=== PATIENT | female | born 1975 | race Caucasian/White ===

== ENCOUNTER 2022-07-30 22:29 | Emergency (ER) | payer OTHER ==
[~2022-07-30] VITALS: Ht 170.2 cm; Wt 92.5 kg
[2022-07-30 22:47] VITALS: BP 192/97
[2022-07-30 23:05] VITALS: BP 192/97
--- NOTE | 2022-07-31 00:45 | NUR ---
PT TAKEN TO BED 6
--- NOTE | 2022-07-31 00:46 | NUR ---
Dr. Caldera examining patient.
[2022-07-31] MEDS ORDERED: NAPR-54 PO (00:53)
[2022-07-31] MEDS ORDERED: ACET-8905 PO (00:53)
[2022-07-31] MEDS ORDERED: AMOX1TAB8 PO (00:53)
[2022-07-31] MEDS ORDERED: HYDROcodone/APAP 5/325 MG 1 TAB TAB PO ONE (01:25)
--- NOTE | 2022-07-31 01:37 | NUR ---
Chart checked and completed.
--- NOTE | 2022-07-31 01:37 | NUR ---
Patient discharged with v/s stable. Written and verbal after care instructions given and explained. Patient verbalized understanding. Ambulatory with steady gait. All questions addressed prior to discharge. Advised to follow up with PMD.
== END 2022-07-31 01:37 | disposition home or self-care (01) ==
LOC: MED 22:29
DX: K04.7 Periapical abscess without sinus (principal)
CPT/HCPCS: 99283

== ENCOUNTER 2022-08-28 11:15 | Emergency (ER) | payer OTHER ==
[~2022-08-28] VITALS: Ht 170.2 cm; Wt 95.3 kg
[~2022-08-28 11:15] MED LIST: ACET-8905 PO; AMOX1TAB8 PO; NAPR-54 PO
[2022-08-28 11:43] VITALS: BP 179/86
[2022-08-28] MEDS ORDERED: CLINDAMYCIN 900MG/D5W PM 50 ML IV ONE (14:35)
[2022-08-28] MEDS ORDERED: IBUPROFEN 600 MG TAB PO ONE (16:15)
--- NOTE | 2022-08-28 17:00 | NUR ---
CALLED PT IN LOBBY, NO ANSWER
--- NOTE | 2022-08-28 18:02 | NUR ---
NO ANSWER X 2
[2022-08-28] MEDS ORDERED: LEVO750T75 PO (19:53)
== END 2022-08-28 17:00 | disposition left against medical advice (07) ==
LOC: MED 11:15
DX: S92.512B Displaced fracture of proximal phalanx of left lesser toe(s), initial encounter for open fracture (principal); Z79.1 Long term (current) use of non-steroidal anti-inflammatories (NSAID); Z79.891 Long term (current) use of opiate analgesic; Z79.2 Long term (current) use of antibiotics; Z88.1 Allergy status to other antibiotic agents; W20.8XXA Other cause of strike by thrown, projected or falling object, initial encounter; Y93.89 Activity, other specified; Y92.89 Other specified places as the place of occurrence of the external cause; Y99.8 Other external cause status
CPT/HCPCS: 73630; 99283

== ENCOUNTER 2022-10-14 19:00 | Emergency (ER) | payer OTHER ==
[~2022-10-14] VITALS: Ht 167.6 cm; Wt 90.7 kg
[~2022-10-14 19:00] MED LIST changes: +LEVO750T75 PO
[2022-10-14 19:11] VITALS: BP 162/96
[2022-10-14 19:31] VITALS: BP 162/96
--- NOTE | 2022-10-14 19:31 | NUR ---
Patient discharged with v/s stable. Written and verbal after care instructions given and explained. Accompanied by Matthew VILLAGOMEZ for booking. All questions addressed prior to discharge. Advised to follow up with PMD.
--- NOTE | 2022-10-14 19:31 | NUR ---
Pt seen and evaluated by ERINN
== END 2022-10-14 19:31 ==
LOC: MED 19:00
DX: R45.1 Restlessness and agitation (principal); Z79.899 Other long term (current) drug therapy
CPT/HCPCS: 99283

== ENCOUNTER 2022-11-16 08:52 | Emergency (ER) | payer OTHER ==
[~2022-11-16] VITALS: Ht 170.2 cm; Wt 90.7 kg
--- NOTE | 2022-11-16 09:15 | NUR ---
PATIENT WHEEL CHAIR ASSIT TO BED 01
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
--- NOTE | 2022-11-16 10:35 | NUR ---
estevan VILLAGOMEZ assesing PT bedside. officer Isaías
[2022-11-16] MEDS ORDERED: BICT1TAB PO (10:50)
[2022-11-16] MEDS ORDERED: METR-435 PO (10:50)
[2022-11-16] MEDS ORDERED: DOXY-690 PO (10:50)
[2022-11-16] MEDS ORDERED: GENTAMICIN 80 MG/2 ML VIAL IM ONE (10:55)
[2022-11-16] MEDS ORDERED: AZITHROMYCIN 250 MG TAB PO ONE (10:55)
--- NOTE | 2022-11-16 11:06 | NUR ---
pt medicated per doctors orders. tolerated medications
--- NOTE | 2022-11-16 11:08 | NUR ---
Patient discharged with v/s stable. Written and verbal after care instructions given and explained. Patient alert, oriented and verbalized understanding of instructions. Ambulatory with steady gait. All questions addressed prior to discharge. ID band removed. Patient advised to follow up with PMD. Rx of biktarvy,virbramucin, metronidazole given. Patient educated on indication of medication including possible reaction and side effects. Opportunity to ask questions provided and answered
[2022-11-16] MEDS ORDERED: ACETAMINOPHEN EXTRA STRENGTH 500 MG TAB PO ONE (11:30)
--- NOTE | 2022-11-16 11:35 | NUR ---
Raina maynard in ED - 11/16/22 at 1213 by [email or web address] [place] [employer] assesing PT bedside. officer Isaías
--- NOTE | 2022-11-16 11:59 | NUR ---
Note steveone in EDM - 11/16/22 at 1212 by [email or web address] Patient discharged with v/s stable. Written and verbal after care instructions given and explained. Patient alert, oriented and verbalized understanding of instructions. Ambulatory with steady gait. All questions addressed prior to discharge. ID band removed. Patient advised to follow up with PMD. Rx of hortensiaarjonathan,virbramucin, metronidazole given. Patient educated on indication of medication including possible reaction and side effects. Opportunity to ask questions provided and answered.
[2022-11-16 12:02] LABS: BASOPHILS % (AUTO) 0.5 % (0.0-2.0); EOSINOPHILS # (AUTO) 0.2 K/uL (0-0.4); EOSINOPHILS % (AUTO) 2.3 % (0.0-4.0); HEMATOCRIT 48.6 % (36-48); HEMOGLOBIN 16.6 g/dL (12.0-16.0); LYMPHOCYTES # (AUTO) 3.6 K/uL (2.5-16.5); LYMPHOCYTES % (AUTO) 41.9 % (20.5-51.1); MEAN CORPUSCULAR HEMOGLOBIN 33 pg (27-31); MEAN CORPUSCULAR HGB CONC 34 g/dL (33-37); MONOCYTES # (AUTO) 0.7 K/uL (0.8-1.0); MONOCYTES % (AUTO) 8.1 % (1.7-9.3); NEUTROPHILS % (AUTO) 47.2 % (42.2-75.2); PLATELET COUNT (AUTO) 239 K/uL (140-450); RED BLOOD CELL COUNT(AUTO) 5.01 MIL/uL (4.20-5.40); WHITE BLOOD COUNT (AUTO) 8.6 K/uL (4.8-10.8)
[2022-11-16 12:24] LABS: ANION GAP 14.8 (8-16); CARBON DIOXIDE 28.4 mmol/L (21-32); CREATININE 0.6 mg/dL (0.6-1.3); POTASSIUM 4.2 mmol/L (3.5-5.1); TOTAL BILIRUBIN 0.2 mg/dL (0.0-1.0)
== END 2022-11-16 09:30 | disposition home or self-care (01) ==
LOC: MED 08:52
DX: T74.21XA Adult sexual abuse, confirmed, initial encounter (principal); I10 Essential (primary) hypertension; Z79.2 Long term (current) use of antibiotics; Z79.899 Other long term (current) drug therapy; Z79.1 Long term (current) use of non-steroidal anti-inflammatories (NSAID); Z88.1 Allergy status to other antibiotic agents
CPT/HCPCS: 36415; 80053; 85025; 96372; 99283; J1580

== ENCOUNTER 2022-12-27 14:58 | Emergency (ER) | payer OTHER ==
[~2022-12-27] VITALS: Ht 162.6 cm; Wt 74.8 kg
[~2022-12-27 14:58] MED LIST changes: +BICT1TAB PO; +DOXY-690 PO; +METR-435 PO
[2022-12-27 15:05] VITALS: BP 134/78; PULSE 95; RESP 20; TEMP 98.2; O2SAT 99
--- NOTE | 2022-12-27 15:08 | NUR ---
pt changer her mind and decided to left without being seen, pt did not want to wait. steady gait home.
== END 2022-12-27 15:08 | disposition left against medical advice (07) ==
LOC: MED 14:58
DX: F41.9 Anxiety disorder, unspecified (principal); Z53.21 Procedure and treatment not carried out due to patient leaving prior to being seen by health care provider
CPT/HCPCS: 99281

== ENCOUNTER 2023-07-14 16:55 | Emergency (ER) | payer OTHER ==
[~2023-07-14] VITALS: Ht 165.1 cm; Wt 90.7 kg
[2023-07-14 17:02] VITALS: BP 109/56; PULSE 109; RESP 23; TEMP 97.8; O2SAT 97
[2023-07-14] MEDS ORDERED: NALOXONE 0.4 MG/ML VIAL IVP ONE (17:25)
[2023-07-14 17:44] VITALS: O2SAT 97
[2023-07-14 17:51] LABS: BASOPHILS # (AUTO) 0.1 K/uL (0.00-0.22); BASOPHILS % (AUTO) 1.1 % (0.0-2.0); EOSINOPHILS # (AUTO) 0.1 K/uL (0-0.4); EOSINOPHILS % (AUTO) 1.2 % (0.0-4.0); HEMATOCRIT 48.7 % (36-48); HEMOGLOBIN 16.8 g/dL (12.0-16.0); LYMPHOCYTES % (AUTO) 26.2 % (20.5-51.1); MEAN CORPUSCULAR HEMOGLOBIN 33 pg (27-31); MEAN CORPUSCULAR HGB CONC 35 g/dL (33-37); MEAN CORPUSCULAR VOLUME 96.4 fL (80-94); MONOCYTES # (AUTO) 0.7 K/uL (0.8-1.0); MONOCYTES % (AUTO) 9.7 % (1.7-9.3); NEUTROPHILS # (AUTO) 4.7 K/uL (1.8-7.7); NEUTROPHILS % (AUTO) 61.8 % (42.2-75.2); PLATELET COUNT (AUTO) 175 K/uL (140-450); RED BLOOD CELL COUNT(AUTO) 5.05 MIL/uL (4.20-5.40); RED CELL DISTRIBUTION WIDTH 12.9 % (11.6-13.7); WHITE BLOOD COUNT (AUTO) 7.6 K/uL (4.8-10.8)
[2023-07-14 18:09] LABS: ALANINE AMINOTRANSFERASE 49 U/L (12-78); ALBUMIN 3.7 g/dL (3.4-5.0); ALCOHOL, BLOOD 185 mg/dL (<10); ALKALINE PHOSPHATASE 125 U/L (50-136); ANION GAP 18.9 (8-16); ASPARTATE AMINOTRANSFERASE 47 U/L (15-37); CARBON DIOXIDE 23.8 mmol/L (21-32); CHLORIDE 103 mmol/L (98-107); CREATINE KINASE, TOTAL 191 U/L (26-192); CREATININE 1.2 mg/dL (0.6-1.3); GFR ARICAN-AMERICAN 62 mL/min (>90); GFR NON ARICAN-AMERICAN 51 mL/min (>90); GLUCOSE 101 mg/dL (74-106); POTASSIUM 3.7 mmol/L (3.5-5.1); SODIUM SERUM 142 mmol/L (136-145); TOTAL BILIRUBIN 0.2 mg/dL (0.0-1.0); TOTAL PROTEIN, SERUM 8.5 g/dL (6.4-8.2); UREA NITROGEN, BLOOD 20 mg/dL (7-18)
[2023-07-14 18:25] LABS: ACETAMINOPHEN < 0.5 ug/ml (10-30); SALICYLATE < 2.8 mg/dL (2.8-20.0)
[2023-07-14 19:25] LABS: AMPHETAMINE, URINE POSITIVE ng/ml (NEG <=1000); CANNABINOID, URINE POSITIVE ng/mL (NEG <=50)
[2023-07-14 19:26] LABS: BARBITURATE, URINE NEGATIVE ng/ml (NEG <=200); BENZODIAZEPINE, URINE NEGATIVE ng/mL (NEG <=200); COCAINE, URINE NEGATIVE ng/mL (NEG <=300); OPIATE, URINE NEGATIVE ng/mL (NEG <=2000); PHENCYCLIDINE SCREEN,URINE NEGATIVE ng/mL (NEG <=25)
[2023-07-14 19:43] VITALS: O2SAT 99
[2023-07-14] MEDS: NALOXONE 0.4 MG/ML VIAL IVP ONE (20:05)
[2023-07-14] MEDS: NACL 0.9% 1,000 ML IV ONE (20:08)
[2023-07-14 23:08] VITALS: O2SAT 97
[2023-07-15 01:16] VITALS: O2SAT 96
[2023-07-15] MEDS: guaiFENesin DM 200/20 MG-10 ML 10 ML UDC PO ONE (01:35)
[2023-07-15 05:49] VITALS: BP 144/74; PULSE 93; RESP 14; TEMP 96; O2SAT 96
== END 2023-07-15 05:49 | disposition home or self-care (01) ==
LOC: MED 16:55
DX: F19.90 Other psychoactive substance use, unspecified, uncomplicated (principal); R00.0 Tachycardia, unspecified; I10 Essential (primary) hypertension; Z79.899 Other long term (current) drug therapy; Z88.1 Allergy status to other antibiotic agents
CPT/HCPCS: 36415; 71045; 80053; 80305; 81025; 82140; 82550; 83605; 84484; 85025; 93005; 96360; 99285; G0480; G0482; J7030; Q0092; J2310

== ENCOUNTER 2023-12-26 16:47 | Inpatient (IN) | payer OTHER ==
[~2023-12-26] VITALS: Ht 167.6 cm; Wt 89.8 kg
[~2023-12-26 16:47] MED LIST changes: +NAPR-337 PO; -NAPR-54 PO
[2023-12-26 17:18] VITALS: BP 136/91; PULSE 105; RESP 22; TEMP 98.3; O2SAT 96
[2023-12-26 19:32] VITALS: O2SAT 98
[2023-12-26] MEDS ORDERED: KCL 20 MEQ IN 100 mL PREMIX 200 ML IV PRN (20:00)
[2023-12-26] MEDS ORDERED: MAGNESIUM OXIDE 400 MG TAB PO PRN (20:00)
[2023-12-26] MEDS ORDERED: VANCOMYCIN PER PHARMACY MC PRN (20:00)
[2023-12-26] MEDS ORDERED: ONDANSETRON 4 MG/2 ML VIAL IVP PRN (20:00)
[2023-12-26] MEDS ORDERED: POTASSIUM CHLORIDE 10 MEQ TABER PO PRN (20:00)
[2023-12-26] MEDS ORDERED: ACETAMINOPHEN 325 MG TAB PO PRN (20:00)
[2023-12-26] MEDS ORDERED: AMPICILLIN/SULBACTAM 3 GM VIAL ONE (20:03)
[2023-12-26] MEDS: MORPHINE SULFATE 4 MG/ML SYR IVP ONE (20:04)
[2023-12-26] MEDS: NACL 0.9% 1,000 ML IV ONE (20:07)
[2023-12-26] MEDS: AMPICILLIN/SULBACTAM 3 GM in NACL 0.9% 100 ML IV ONE (20:07)
[2023-12-26] MEDS: HYDROmorphone PFS 2 MG/ML SYR IVP ONE (20:25)
[2023-12-26 20:29] LABS: ANION GAP 15.5 (8-16); CALCIUM 9.2 mg/dL (8.5-10.1); CARBON DIOXIDE 24.7 mmol/L (21-32); CREATININE 0.8 mg/dL (0.6-1.3); POTASSIUM 4.2 mmol/L (3.5-5.1)
[2023-12-26 20:31] LABS: BASOPHILS # (AUTO) 0.1 K/uL (0.00-0.22); BASOPHILS % (AUTO) 1.1 % (0.0-2.0); EOSINOPHILS # (AUTO) 0.4 K/uL (0-0.4); EOSINOPHILS % (AUTO) 3.3 % (0.0-4.0); HEMATOCRIT 43.7 % (36-48); HEMOGLOBIN 14.8 g/dL (12.0-16.0); LYMPHOCYTES # (AUTO) 3.7 K/uL (2.5-16.5); LYMPHOCYTES % (AUTO) 32.3 % (20.5-51.1); MEAN CORPUSCULAR HEMOGLOBIN 33 pg (27-31); MEAN CORPUSCULAR HGB CONC 34 g/dL (33-37); MEAN CORPUSCULAR VOLUME 97.5 fL (80-94); MONOCYTES # (AUTO) 1.1 K/uL (0.8-1.0); MONOCYTES % (AUTO) 9.8 % (1.7-9.3); NEUTROPHILS # (AUTO) 6.1 K/uL (1.8-7.7); NEUTROPHILS % (AUTO) 53.5 % (42.2-75.2); PLATELET COUNT (AUTO) 255 K/uL (140-450); RED BLOOD CELL COUNT(AUTO) 4.48 MIL/uL (4.20-5.40); RED CELL DISTRIBUTION WIDTH 13.4 % (11.6-13.7); WHITE BLOOD COUNT (AUTO) 11.4 K/uL (4.8-10.8)
[2023-12-26] MEDS ORDERED: metroNIDAZOLE 500 MG/NS PREMIX 100 ML IV ONE (20:35)
[2023-12-26] MEDS: NACL 0.9% 1,000 ML IV SCH (20:56)
[2023-12-26] MEDS: metroNIDAZOLE 500 MG/NS PREMIX 100 ML IV ONE (20:57)
[2023-12-26] MEDS ORDERED: VANCOMYCIN 1.25GM PREMIX 250 ML IV ONE (21:00)
[2023-12-26] MEDS: VANCOMYCIN HCL 1.25 GM in NACL 0.9% 250 ML IV ONE (21:00)
[2023-12-26] MEDS: MORPHINE SULFATE 4 MG/ML SYR IVP PRN (22:55)
[2023-12-26 23:00] VITALS: PULSE 78; RESP 18; O2SAT 97
[2023-12-27] VITALS: BP 155/83; PULSE 78; RESP 18; TEMP 97.6; O2SAT 97
[2023-12-27] MEDS: cefTRIAXone 1,000 MG VIAL ONE ×2 (00:12→22:07)
[2023-12-27] MEDS: VANCOMYCIN 1,000 MG VIAL ONE (00:14)
[2023-12-27] MEDS: VANCOMYCIN 500 MG VIAL ONE ×2 (00:15)
[2023-12-27] MEDS ORDERED: VANCOMYCIN HCL 1.25 GM in NACL 0.9% 250 ML IV ONE (00:40)
[2023-12-27] MEDS ORDERED: metroNIDAZOLE 500 MG/NS PREMIX 100 ML IV SCH (01:00)
[2023-12-27] MEDS: HYDROcodone/APAP 5/325 MG 1 TAB TAB PO PRN (01:53)
[2023-12-27] MEDS: metroNIDAZOLE 500 MG/NS PREMIX 100 ML IV SCH (04:23)
[2023-12-27 06:44] LABS: BASOPHILS # (AUTO) 0.1 K/uL (0.00-0.22); BASOPHILS % (AUTO) 1.4 % (0.0-2.0); EOSINOPHILS # (AUTO) 0.5 K/uL (0-0.4); EOSINOPHILS % (AUTO) 5.7 % (0.0-4.0); HEMATOCRIT 39.8 % (36-48); HEMOGLOBIN 13.5 g/dL (12.0-16.0); LYMPHOCYTES # (AUTO) 2.8 K/uL (2.5-16.5); MEAN CORPUSCULAR HEMOGLOBIN 33 pg (27-31); MEAN CORPUSCULAR HGB CONC 34 g/dL (33-37); MEAN CORPUSCULAR VOLUME 97.3 fL (80-94); MONOCYTES # (AUTO) 0.8 K/uL (0.8-1.0); MONOCYTES % (AUTO) 10.5 % (1.7-9.3); NEUTROPHILS # (AUTO) 3.8 K/uL (1.8-7.7); NEUTROPHILS % (AUTO) 47.4 % (42.2-75.2); PLATELET COUNT (AUTO) 211 K/uL (140-450); RED BLOOD CELL COUNT(AUTO) 4.09 MIL/uL (4.20-5.40); RED CELL DISTRIBUTION WIDTH 13.3 % (11.6-13.7)
[2023-12-27 07:00] LABS: ANION GAP 7.9 (8-16); CALCIUM 8.2 mg/dL (8.5-10.1); CREATININE 0.8 mg/dL (0.6-1.3); POTASSIUM 3.9 mmol/L (3.5-5.1)
[2023-12-27 08:00] VITALS: BP 117/66; PULSE 72; RESP 18; TEMP 97.2; O2SAT 99
[2023-12-27] MEDS: VANCOMYCIN 1.25GM PREMIX 250 ML IV SCH (08:24)
[2023-12-27] MEDS: MEDS-TO-BEDS MC SCH (08:25)
[2023-12-27 10:00] VITALS: PULSE 72; RESP 18; TEMP 97.2; O2SAT 99
[2023-12-27 16:00] VITALS: BP 150/73; PULSE 63; RESP 18; TEMP 98; O2SAT 100
[2023-12-27 20:00] VITALS: BP 129/57; PULSE 68; PULSE 74; RESP 18; TEMP 96.9; O2SAT 95
[2023-12-28 04:00] VITALS: BP 147/80; PULSE 68; RESP 18; TEMP 97.1; O2SAT 98
[2023-12-28 08:00] VITALS: PULSE 60; RESP 18; TEMP 97.1; O2SAT 100
[2023-12-28 08:13] LABS: BASOPHILS # (AUTO) 0.1 K/uL (0.00-0.22); BASOPHILS % (AUTO) 1.7 % (0.0-2.0); EOSINOPHILS # (AUTO) 0.4 K/uL (0-0.4); EOSINOPHILS % (AUTO) 6.1 % (0.0-4.0); HEMATOCRIT 42.8 % (36-48); HEMOGLOBIN 14.4 g/dL (12.0-16.0); LYMPHOCYTES # (AUTO) 2.4 K/uL (2.5-16.5); LYMPHOCYTES % (AUTO) 36.2 % (20.5-51.1); MEAN CORPUSCULAR HEMOGLOBIN 33 pg (27-31); MEAN CORPUSCULAR HGB CONC 34 g/dL (33-37); MEAN CORPUSCULAR VOLUME 97.4 fL (80-94); MONOCYTES # (AUTO) 0.6 K/uL (0.8-1.0); MONOCYTES % (AUTO) 9.4 % (1.7-9.3); NEUTROPHILS # (AUTO) 3.1 K/uL (1.8-7.7); NEUTROPHILS % (AUTO) 46.6 % (42.2-75.2); PLATELET COUNT (AUTO) 184 K/uL (140-450); RED BLOOD CELL COUNT(AUTO) 4.39 MIL/uL (4.20-5.40); WHITE BLOOD COUNT (AUTO) 6.6 K/uL (4.8-10.8)
[2023-12-28 08:45] LABS: ANION GAP 12.6 (8-16); CALCIUM 8.8 mg/dL (8.5-10.1); CARBON DIOXIDE 24.4 mmol/L (21-32); CREATININE 0.8 mg/dL (0.6-1.3)
[2023-12-28] MEDS ORDERED: [UNRECOGNIZED DRUG - OTHER] PO (10:55)
[2023-12-28] MEDS ORDERED: LACT-2 (10:55)
[2023-12-28] MEDS ORDERED: AMOX-1230 PO (10:55)
[2023-12-28] MEDS ORDERED: DOXY-690 PO (10:55)
[2023-12-28 10:59] VITALS: BP 109/86; PULSE 60; RESP 18; TEMP 97.1
[2023-12-28] MEDS ORDERED: NAPR-337 PO (14:09)
[2023-12-28] MEDS ORDERED: ACET-5634 PO (14:09)
== END 2023-12-28 11:59 | disposition home or self-care (01) | DRG 720 ==
LOC: MED 16:47 → MTU 19:59
PROVIDERS: ADMIT Internal Medicine; ATTEND Internal Medicine
DX: A41.9 Sepsis, unspecified organism (principal); L03.116 Cellulitis of left lower limb; D72.829 Elevated white blood cell count, unspecified; I10 Essential (primary) hypertension; Z79.899 Other long term (current) drug therapy
CPT/HCPCS: 36415; 73630; 80048; 80202; 85025; 87040; 87081; 99285; J0295; J0696; J1170; J1644; J2270; J3370; J3372; J3490; J7030; J7060

== ENCOUNTER 2023-12-28 13:36 | Emergency (ER) | payer OTHER ==
[~2023-12-28] VITALS: Ht 167.6 cm; Wt 91.7 kg
[~2023-12-28 13:36] MED LIST changes: -ACET-8905 PO; +AMOX-1230 PO; -AMOX1TAB8 PO; -BICT1TAB PO; +LACT-2; -LEVO750T75 PO; -METR-435 PO; -NAPR-337 PO; +[UNRECOGNIZED DRUG - OTHER] PO
[2023-12-28 13:41] VITALS: BP 189/110; PULSE 82; RESP 18; TEMP 97.6; O2SAT 100
[2023-12-28] MEDS ORDERED: NAPR-337 PO (14:09)
[2023-12-28] MEDS ORDERED: ACET-5634 PO (14:09)
[2023-12-28 14:15] VITALS: O2SAT 100
[2023-12-28] MEDS: HYDROcodone/APAP 10/325 MG 1 TAB TAB PO PRN (14:15)
[2023-12-28 14:20] VITALS: BP 142/108; PULSE 85; RESP 18; TEMP 97.6
== END 2023-12-28 14:18 | disposition home or self-care (01) ==
LOC: MED 13:36
DX: L03.116 Cellulitis of left lower limb (principal); I10 Essential (primary) hypertension; Z79.1 Long term (current) use of non-steroidal anti-inflammatories (NSAID); Z79.2 Long term (current) use of antibiotics; Z79.899 Other long term (current) drug therapy; Z88.8 Allergy status to other drugs, medicaments and biological substances
CPT/HCPCS: 99283

== ENCOUNTER 2024-02-13 19:15 | Emergency (ER) | payer OTHER ==
[~2024-02-13] VITALS: Ht 170.2 cm; Wt 89.8 kg
[~2024-02-13 19:15] MED LIST changes: +ACET-5634 PO; +NAPR-337 PO
[2024-02-13 19:30] VITALS: BP 137/77; PULSE 75; RESP 18; TEMP 98.2; O2SAT 96
[2024-02-13] MEDS: HYDROcodone/APAP 5/325 MG 1 TAB TAB PO ONE (20:42)
[2024-02-13] MEDS ORDERED: SULF-58 PO (20:55)
[2024-02-13] MEDS ORDERED: CEPH-588 PO (20:55)
[2024-02-13] MEDS ORDERED: ACET-8905 PO (20:56)
[2024-02-13] MEDS ORDERED: BACI-418 TP (20:57)
== END 2024-02-13 21:02 | disposition home or self-care (01) ==
LOC: MED 19:15
DX: M00.9 Pyogenic arthritis, unspecified (principal); G89.29 Other chronic pain; I10 Essential (primary) hypertension; Z79.899 Other long term (current) drug therapy; Z88.8 Allergy status to other drugs, medicaments and biological substances
CPT/HCPCS: 99283